=== PATIENT | male | born 1945 | race Caucasian/White ===

== ENCOUNTER 2022-01-28 12:46 | Emergency (ER) | payer MEDICARE, OTHER ==
[2022-01-28 13:30] LABS: #Basophils 0.2 thou/uL (0.0-0.2); #Eosinphils 0.1 thou/uL (0.0-0.7); #Lymphocytes 2.3 thou/uL (1.20-3.40); #Monocytes 1.2 thou/uL (0.11-0.59); #Neutrophils 14.2 thou/uL (1.40-6.50); %Basophils 0.9 % (0.0-1.0); %Eosinophils 0.5 % (0.0-10.0); %Lymphocytes 12.8 % (21.0-51.0); %Monocytes 6.8 % (0.0-10.0); %Neutrophils 79.1 % (42.0-75.0); Hemoglobin 12.8 g/dL (14.0-18.0); Mean Corpuscular HGB CONC 29.9 g/dL (32.0-36.0); Mean Corpuscular Hemoglobin 29.6 pg (27.0-31.0); Mean Corpuscular Volume 98.9 fL (78.0-98.0); Mean Platelet Volume 7.5 fL (7.4-10.4); Platelet Count 138 thou/uL (130-400); RBC Distribution Width 14.4 % (11.5-14.5); Red Blood Cell (RBC) Count 4.33 mill/uL (4.70-6.10); White Blood Cell (WBC) Count 17.9 thou/uL (4.8-10.8)
[2022-01-28 13:32] LABS: ALT (SGPT) 62 U/L (8-55); AST (SGOT) 52 U/L (5-34); Albumin 3.6 g/dL (3.4-4.8); Alkaline Phosphatase 48 U/L (40-110); Anion Gap 32 mmol/L (10-20); BUN (Urea Nitrogen) 25 mg/dL (8.4-25.7); Bilirubin, Total 0.2 mg/dL (0.2-1.2); Calc. Creatinine Clearance 0 mL/min (70-130); Calcium 9.3 mg/dL (7.8-10.44); Carbon Dioxide 12 mmol/L (23-31); Chloride 103 mmol/L (98-107); Estimated GFR 66; Globulin 2.6 g/dL (2.4-3.5); Potassium 5.2 mmol/L (3.5-5.1); Protein, Total 6.2 g/dL (5.8-8.1); Sodium 142 mmol/L (136-145)
[2022-01-28 13:33] LABS: Glucose 332 mg/dL (83-110)
== END 2022-01-28 17:16 | disposition expired ==
LOC: NAV ER/OP 12:46
DX: I46.9 Cardiac arrest, cause unspecified (principal)
CPT/HCPCS: 80053; 84484; 85025; 92950